=== PATIENT | female | born 1985 | race Caucasian/White ===

== ENCOUNTER 2018-02-15 02:11 | Inpatient (IN) ==
[2018-02-15] MEDS ORDERED: Naloxone 0.4 MG/ML INJ IVP PRN (02:49)
[2018-02-15] MEDS ORDERED: Famotidine 20 MG/2 ML VIAL IVP PRN (02:49)
[2018-02-15] MEDS ORDERED: Metoclopramide 10 MG/2 ML VIAL IVP PRN ×2 (02:49→08:09)
[2018-02-15] MEDS ORDERED: Ringers Solution, Lactated 1,000 ML ONE (02:59)
[2018-02-15] MEDS ORDERED: Ringers Solution, Lactated 1,000 ML IVC SCH (03:00)
--- NOTE | 2018-02-15 03:07 | Anesthesia Evaluation PreOp ---
Date of Encounter: 02/15/18 Time of Encounter: 03:05 - Past History Planned Operation: Repeat C/S Cardiac History: Denies any Significant Hx Pulmonary History: Denies Any Significant HX SALES PROPERTY MANAGER History: Denies Any Significant HX Other Medical History: Denies Any Significant HX Anesthesia History: No Prior Anesthetic Complications (denies personal and family h/o GA complications), Problems (PDPH with last single-shot spinal attempt for C/S; then patient had to be put under GETA; no issues w/ MJ in first .) : Yes Alcohol Use: none Drug use: none Medications and Allergies Cetirizine HCl [Children's Zyrtec] 10 ml PO PRN PRN 02/15/18 [History] Docusate [Colace] 1 tab PO DAILY 02/15/18 [History] Vit No.129/Iron/FA [ One Daily Tablet] 1 tab PO DAILY 02/15/18 [History] 3 Allergy/AdvReac Type Severity Reaction Status Date / Time No Known Allergies Allergy Verified 02/15/18 02:29 - Meds/Allergy Pre-op Review Medications Reviewed: Yes Allergies Reviewed: Yes Beta Blockers on Current Med List: No Anesthesia Exam O2 Sat Height 1.55 m Weight 77.8 kg NPO (# of Hours): since 02/14/2018 @2000 Pain Scale: 3 Pain Scale Used: [place]scar[place]ultana (Faces) - HEENT Pupil (Motor): Pupils equal Mallampati: II Teeth: Normal Oral Opening: Greater than 3 - SALES PROPERTY MANAGER LOC: Oriented SALES PROPERTY MANAGER Motor: Normal RUE, Normal LUE, Normal RLE, Normal LLE, Normal Face SALES PROPERTY MANAGER Sensory: Normal: RUE, LUE, RLE, LLE, Face - Cardiac Rhythm: Regular Murmur: None - Pulmonary Breath Sounds: bilateral Clear Respiratory Effort: Symmetrical Anesthesia Assess/Plan ASA Score: 2 Modified Tamir Scale for Level of Consciousness: Cooperative, oriented, and tranquil Anesthetic Plan: General (plan B), Regional (plan A) Autologous Blood: No Monitoring Plan: Standard Monitors Recovery Plan: PACU
[2018-02-15 03:08] LABS: Basophils % 0.3 %; Eosinophils # 0.1 K/mcL (0.0-0.6); Eosinophils % 0.5 %; Hematocrit 36.2 % (35.3-44.9); Hemoglobin 12.2 g/dL (11.5-15.4); Immature Granulocytes % 0.6 % (0-4); Lymphocytes # 1.6 K/mcL (0.6-4.6); Lymphocytes % 13.2 %; Mean Corpuscular HGB Conc 33.7 g/dL (31.6-35.5); Mean Corpuscular Hemoglobin 31.9 pg (28.0-33.3); Mean Corpuscular Volume 94.8 fL (83.0-100.0); Mean Platelet Volume 11.3 fL (9.4-12.4); Monocytes # 0.8 K/mcL (0.0-1.3); Monocytes % 6.8 %; Neutrophils # 9.7 K/mcL (1.6-8.9); Platelet Count 155 K/mcL (140-400); Red Blood Count 3.82 M/mcL (3.82-4.97); Red Cell Distribution Width 12.1 % (11.5-14.5); Segmented Neutrophils % 78.6 %
[2018-02-15] MEDS ORDERED: Bupivacaine/PF 0.75% in Dex 2 ML AMPUL INFILT ONE (03:09)
[2018-02-15] MEDS ORDERED: *HR* Morphine Sulfate/PF 10 MG/10 ML AMPUL ONE (03:11)
[2018-02-15] MEDS ORDERED: Lidocaine -MPF 1% 5 ML AMPUL ONE (03:11)
[2018-02-15] MEDS ORDERED: *HR* FentaNYL (PF) 100 MCG/2 ML VIAL ONE (03:11)
[2018-02-15 03:26] LABS: Amphetamine Screen,Urine Negative ng/mL (Cutoff=1000); Barbiturate Screen,Urine Negative ng/mL (Cutoff=200); Benzodiazepines Screen,Urine Negative ng/mL (Cutoff=200); Cannabinoid Screen,Urine Negative ng/mL (Cutoff = 50); Cocaine Screen,Urine Negative ng/mL (Cutoff= 300); Opiate Screen,Urine Negative ng/mL (Cutoff=300); Phencyclidine Screen,Urine Negative ng/mL (Cutoff=25)
--- NOTE | 2018-02-15 03:27 | OB/GYN History & Physical ---
Date of Encounter: 02/15/18 Time of Encounter: 03:22 Assessment and Plan (1) 38 weeks gestation of Current visit: Yes Status: Acute SROM Pain management with spinal Will cover for GBS Plan for as she has had 2 prior and desires BPS (2) History of delivery Current visit: Yes Status: Acute Plan for repeat with sterilization, surgical consent signed with Dr. Aguero History of Present Illness HPI: Ms. López is a 32 year old female patient of Dr. Aguero who presents at 38w2d based on 8 week US due to SROM. Patient states she was checked in the office yesterday afterwards experienced small bleeding but today 02/15 at midnight she experienced a leakage of fluids. Reports good movement. Denies bleeding, headache, nausea, vomiting. Beginning to feel contractions. Has had two prior deliveries and requests BPS. No complications with this . A Positive GBS positive Varicella and Rubella immune HIV negative All other serologies negative Past Med Surg Social Fam HX - Past Medical History Medical history: no medical history Psychiatric history: no psych history - Past Surgical History Surgical History: (x2) Additional surgical history: X2 ACL surgeries on left knee - Social History Smoking Status: Never smoker Smokeless Tobacco Status: No Alcohol use: none Drug use: none - Family History Father Hx Family Endocrine Disorder: Yes (DM) Obstetrical History - Pregnancies : 3 Para: 2 Livin Medications and Allergies Cetirizine HCl [Children's Zyrtec] 10 ml PO PRN PRN 02/15/18 [History] Docusate [Colace] 1 tab PO DAILY 02/15/18 [History] Vit No.129/Iron/FA [ One Daily Tablet] 1 tab PO DAILY 02/15/18 [History] 3 Allergy/AdvReac Type Severity Reaction Status Date / Time No Known Allergies Allergy Verified 02/15/18 02:29 Review of System OB All systems PM: reviewed and no additional remarkable complaints except as stated - Genitourinary Genitourinary: vaginal discharge Exam - Constitutional Constitutional: well developed, well nourished, no acute distress, average body habitus - HEENT HEENT: Normocephaly, Mucus Membranes Moist - Lungs Respiratory exam: CTAB - Cardiovascular Cardiovascular exam: RRR, +S1, +S2 - Abdomen Abdomen: Present: bowel sounds normal, gravid - Extremities Extremities exam: normal inspection Deep Tendon Reflex Grade: 2+ Normal - Cervix Dilation: 2 (per RN) Effacement: 80 Station: -2 - Uterus Uterus exam: Present: normal size, normal contour Results Result Diagrams: 02/15/18 02:50 Abnormal lab results WBC 12.4 K/mcL (4.3-11.1) H 02/15/18 02:50 Neutrophils # 9.7 K/mcL (1.6-8.9) H 02/15/18 02:50 All other labs normal. - Attending Attestation I examined this patient and my medical decision-making was reviewed with the Resident Physician. I agree with the documented findings, disposition and treatment plan as described except to the extent set forth below. Jorge Nayak MD,FACOG
[2018-02-15] MEDS ORDERED: Oxytocin 20 units/ LR 1000 mL 20 UNIT/1,000 ML BAG IVC ONE ×2 (04:03→06:49)
[2018-02-15] MEDS ORDERED: *HR* HYDROmorphone 2 MG TABLET PO PRN (04:46)
[2018-02-15] MEDS ORDERED: *HR* OxyCODONE Immed Rel 5 MG TABLET PO PRN (04:46)
[2018-02-15] MEDS ORDERED: Ondansetron 4 MG/2 ML VIAL IVP PRN ×2 (04:46→08:09)
[2018-02-15] MEDS ORDERED: *HR* Promethazine 25 MG/ML VIAL IVP PRN ×2 (04:46→09:57)
[2018-02-15] MEDS ORDERED: Acetaminophen IV 1,000 MG/100 ML INFUS..BTL IVPB ONE (04:46)
--- NOTE | 2018-02-15 05:58 | OB/GYN Procedure Note ---
Section - Date of procedure: 02/15/18 Preop diagnosis: desires repeat , desires sterilization Post-op diagnosis: same Procedure: repeat low transverse, bilateral tubal ligation Surgeon: Jorge Naranjo Blood Loss: 500 Was there an assistant football coach present: Yes Paint Mixer Machine: Teresa William Anesthesiologist: Froylan Watson Anesthesia Type: Spinal section complications: none Disposition: PACU Specimens: Right tube segment, Left tube segment - (s) Infant A Delivery Date: 02/15/18 Delivery Time: 04:43 Presentation: vertex Position: BALTAZAR Gender: Male Viability: Viable Pounds: 6 Ounces: 12 at 1 minute: 8 at 5 minutes: 9 - Narrative Narrative: Patient was taken to the operating room. After satisfactory anesthesia was achieved, patient placed in supine position Altman catheter inserted and prepped and draped in usual manner. After appropriate timeout was obtained, the abdomen was entered through standard Maylard incision. The Michelle retractor was placed. Peritoneum overlying the lower uterine segment was incised in U-shaped fashion. Uterine cavity was entered sharply extended laterally. Fluid was clear. With fundal pressure the head was delivered. Nuchal cord 1 that was loose was relieved. Infant suctioned upon delivery of the head. Remainder the infant was delivered. The umbilical cord for cord double clamped and cut and the was handed to nursery staff for further evaluation. Placenta was removed. Uterus was closed with 0 Monocryl in a single layer. Fallopian tubes were bilaterally resected and sent to pathology for analysis. Pedicles were ligated using 2-0 chromic. After assurance of hemostasis, the retractor was removed. Abdomen was closed standard fashion using 0 PDS on the fascia and 3-0 Monocryl in the skin. Sterile dressing was applied. Patient did well and was taken to recovery in satisfactory condition. Counts were correct.
--- NOTE | 2018-02-15 06:01 | Anesthesia Evaluation Post Op ---
Date of Encounter: 02/15/18 Time of Encounter: 06:00 - Vital Signs Vital Signs: 109/60, HR 72, RR 16, SpO2 98%, T 97.5F - Lungs Lungs: Clear Ascult./Percussion - Airway Airway: Non-obstructed - Cardiovascular Regular Rate - Mental Status Mental Status: Alert & Oriented, Answers Appropriately - Pain Pain Scale: 0 Pain Scale used: Numeric (1 - 10) - Nausea Vomiting Nausea Vomiting: Responds to treatment with IV Meds - Hydration Hydration: NPO, Altman catheter - Discharge PostOp Status: Transfer Patient to floor
[2018-02-15] MEDS ORDERED: Oxytocin 20 units/ LR 1000 mL 20 UNIT/1,000 ML BAG IVC SCH (08:09)
[2018-02-15] MEDS ORDERED: Sennosides 8.6 MG TABLET PO PRN (08:09)
[2018-02-15] MEDS ORDERED: Acetaminophen 325 MG TABLET PO PRN (08:09)
[2018-02-15] MEDS ORDERED: *HR* OxyCODONE/APAP 5/325 TABLET PO PRN (08:09)
[2018-02-15] MEDS: Prenatal Vit/FA 1 EACH TABLET PO SCH (10:15)
[2018-02-15] MEDS: Simethicone 80 MG TAB.CHEW PO PRN (20:23)
[2018-02-15] MEDS: Ibuprofen 600 MG TABLET PO PRN (20:24)
[2018-02-16 06:48] LABS: Basophils % 0.2 %; Eosinophils # 0.1 K/mcL (0.0-0.6); Eosinophils % 0.9 %; Hematocrit 30.9 % (35.3-44.9); Immature Granulocytes % 0.5 % (0-4); Lymphocytes # 1.2 K/mcL (0.6-4.6); Lymphocytes % 8.9 %; Mean Corpuscular HGB Conc 33.3 g/dL (31.6-35.5); Mean Corpuscular Hemoglobin 32.3 pg (28.0-33.3); Mean Corpuscular Volume 96.9 fL (83.0-100.0); Mean Platelet Volume 10.9 fL (9.4-12.4); Monocytes % 7.3 %; Neutrophils # 10.9 K/mcL (1.6-8.9); Platelet Count 133 K/mcL (140-400); Red Blood Count 3.19 M/mcL (3.82-4.97); Segmented Neutrophils % 82.2 %
[2018-02-16 06:58] LABS: Hemoglobin 10.3 g/dL (11.5-15.4)
[2018-02-16] MEDS: Ibuprofen 600 MG TABLET PO PRN ×2 (06:58→12:57)
[2018-02-16] MEDS: Prenatal Vit/FA 1 EACH TABLET PO SCH (07:44)
--- NOTE | 2018-02-16 10:01 | OB/GYN Progress Note ---
Date of Encounter: 02/16/18 Time of Encounter: 09:59 - Assessment and Plan (1) Status post delivery Current Visit: Yes Status: Acute Stable POD1 Pain management H&H stable Anticipate discharge tomorrow morning Subjective - Subjective Interval history: POD1 s/p repeat delivery and BPS. Patient doing well, voiding and drinking well, vaginal bleeding improving. Denies BM yet. Bonding well with baby and . Pain well controlled and states her mood is "good." Baby boy to have circumcision today. Patient reports: appetite normal, voiding normally, pain well controlled, ambulating normally [place]: doing well Objective - Vital Signs Latest vital signs: Vital Signs Temp Pulse Resp BP Pulse Ox 02/16/18 08:00 16 02/16/18 07:58 97.6 F 77 16 110/72 96 02/16/18 00:19 98.3 F 83 16 94/58 96 02/15/18 19:20 97.9 F 85 14 102/69 97 02/15/18 16:06 98.1 F 85 16 105/70 02/15/18 11:00 97.3 F L 78 16 112/70 02/15/18 10:00 97.6 F 91 16 109/74 Intake and Output 02/15/18 02/16/18 02/16/18 23:59 07:59 15:59 Intake Total 1060 / 1060 300 / 300 360 / 360 Output Total 1100 / 1100 1800 / 1800 350 / 350 Balance -40 / -40 -1500 / -1500 10 / 10 Intake: Oral 1060 / 1060 300 / 300 360 / 360 Output: Urine 1800 / 1800 350 / 350 Catheter 1100 / 1100 Other: Meal Dinner Breakfast Percent of Meal Consumed 75% 100% Stool Characteristics Normal for Patient Weight 75.478 kg Patient Weight 02/16/18 23:59 Weight 75.478 kg - Exam Lungs: bilateral: normal Chest: Normal S1, Normal S2 Extremities: Present: normal Abdomen: Present: normal appearance, soft Incision: Present: normal, dry, dressed (small areas of dried, crusted blood, no active bleeding. Not saturated. KISHORE in place. ) Uterus: Present: normal (at umbulicus), firm Comments: ambulating well without distress. States mood is "good" I examined this patient and my medical decision-making was reviewed with the Resident Physician. I agree with the documented findings, disposition and treatment plan as described except to the extent set forth below. JEREMIAH Matt - Labs Labs: Laboratory Results - last 24 hr 02/16/18 06:33 WBC 13.2 H RBC 3.19 L Hgb 10.3 L D Hct 30.9 L MCV 96.9 MCH 32.3 MCHC 33.3 RDW 12.0 Plt Count 133 L MPV 10.9 Immature Gran % 0.5 Seg Neutrophils % 82.2 Lymphocytes % 8.9 Monocytes % 7.3 Eosinophils % 0.9 Basophils % 0.2 Neutrophils # 10.9 H Lymphocytes # 1.2 Monocytes # 1.0 Eosinophils # 0.1 Basophils # 0.0
[2018-02-16] MEDS: Simethicone 80 MG TAB.CHEW PO PRN (14:24)
[2018-02-17] MEDS: Ibuprofen 600 MG TABLET PO PRN ×2 (02:39→08:07)
[2018-02-17] MEDS: Prenatal Vit/FA 1 EACH TABLET PO SCH (08:05)
[2018-02-17 08:12] VITALS: BP 108/73
--- NOTE | 2018-02-17 10:15 | Discharge Summary ---
Date of Encounter: 02/17/18 Time of Encounter: 10:15 - Discharge Diagnosis (1) Status post delivery Priority: Primary Status: Acute Comments: with BPS - Discharge Medications Prescriptions: OxyCODONE/APAP 5/325 [Percocet 5/325 MG] 1 each PO Q4HR PRN 1 Days #5 tablet PRN Reason: Moderate pain 4-6 Ibuprofen [Motrin] 600 mg PO Q6HR PRN 14 Days #56 tablet PRN Reason: Cramping Docusate Sodium [Colace] 100 mg PO BID 30 Days #60 capsule Home Medications: Cetirizine HCl [Children's Zyrtec] 10 ml PO PRN PRN 02/15/18 [History] Vit No.129/Iron/FA [ One Daily Tablet] 1 tab PO DAILY 02/15/18 [History] Docusate Sodium [Colace] 100 mg PO BID 30 Days #60 capsule 02/17/18 [Rx] Ibuprofen [Motrin] 600 mg PO Q6HR PRN 14 Days #56 tablet 02/17/18 [Rx] OxyCODONE/APAP 5/325 [Percocet 5/325 MG] 1 each PO Q4HR PRN 1 Days #5 tablet [Rx] Allergies/Adverse Reactions: 3 Allergy/AdvReac Type Severity Reaction Status Date / Time No Known Allergies Allergy Verified 02/15/18 02:29 Data Procedures and tests throughout hospitalization: Laboratory Tests 02/15/18 02/15/18 02/15/18 02:50 02:50 02:50 WBC 12.4 H RBC 3.82 Hgb 12.2 Hct 36.2 MCV 94.8 MCH 31.9 MCHC 33.7 RDW 12.1 Plt Count 155 MPV 11.3 Immature Gran % 0.6 Seg Neutrophils % 78.6 Lymphocytes % 13.2 Monocytes % 6.8 Eosinophils % 0.5 Basophils % 0.3 Neutrophils # 9.7 H Lymphocytes # 1.6 Monocytes # 0.8 Eosinophils # 0.1 Basophils # 0.0 Urine Opiates Screen Negative Ur Barbiturates Screen Negative Ur Phencyclidine Scrn Negative Ur Amphetamines Screen Negative U Benzodiazepines Scrn Negative Urine Cocaine Screen Negative U Marijuana (THC) Screen Negative Ur Drug Screen Interp See Below Hep Bs Antigen Nonreactive 02/16/18 06:33 WBC 13.2 H RBC 3.19 L Hgb 10.3 L D Hct 30.9 L MCV 96.9 MCH 32.3 MCHC 33.3 RDW 12.0 Plt Count 133 L MPV 10.9 Immature Gran % 0.5 Seg Neutrophils % 82.2 Lymphocytes % 8.9 Monocytes % 7.3 Eosinophils % 0.9 Basophils % 0.2 Neutrophils # 10.9 H Lymphocytes # 1.2 Monocytes # 1.0 Eosinophils # 0.1 Basophils # 0.0 Urine Opiates Screen Ur Barbiturates Screen Ur Phencyclidine Scrn Ur Amphetamines Screen U Benzodiazepines Scrn Urine Cocaine Screen U Marijuana (THC) Screen Ur Drug Screen Interp Hep Bs Antigen Date of admission: 02/15/18 02:11 Primary care physician: PCP NONE Discharging clinician: Teresa William Anticipated date of discharge: 02/17/18 - Patient Status Disposition: Home, Self-Care Functional capacity at discharge: independent ambulation Overall status at discharge: patient is progressing back to baseline - Discharge Instructions Follow Up With: NONE,PCP [Primary Care Provider] - Additional Instructions: - Follow up with Dr. Nayak on 02/27/18 for reevaluation and examination of your incision - Take ibuprofen 600mg every 6 hours for moderate pain and cramping. Take percocet 5mg as needed for breakthrough pain, do not drive while taking this medication. Continue with docusate for stool softening. - Please contact the office should you develop any thoughts of hopelessness or worthlessness, inability to deshpande with baby, increased vaginal bleeding, or concern for incisional infection. - No driving until you are fully healed and not on pain medication. - Diet and Activity Activity: increase activity as tolerated Diet: advance to your usual diet Hospital Course Procedures: Section - Date of procedure: 02/15/18 Preop diagnosis: desires repeat , desires sterilization Post-op diagnosis: same Procedure: repeat low transverse, bilateral tubal ligation Surgeon: Jorge Nayak Quantitated Blood Loss: 500 Was there an life science research assistant present: Yes Pulper: Teresa William Anesthesiologist: Froylan Watson Anesthesia Type: Spinal section complications: none Disposition: PACU Specimens: Right tube segment, Left tube segment - (s) A Delivery Date: 02/15/18 Delivery Time: 04:43 Presentation: vertex Position: BALTAZAR Gender: Male Viability: Viable Pounds: 6 Ounces: 12 at 1 minute: 8 at 5 minutes: 9 - Narrative Narrative: Patient was taken to the operating room. After satisfactory anesthesia was achieved, patient placed in supine position Altman catheter inserted and prepped and draped in usual manner. After appropriate timeout was obtained, the abdomen was entered through standard Maylard incision. The Michelle retractor was placed. Peritoneum overlying the lower uterine segment was incised in U-shaped fashion. Uterine cavity was entered sharply extended laterally. Fluid was clear. With fundal pressure the head was delivered. Nuchal cord 1 that was loose was relieved. suctioned upon delivery of the head. Remainder the infant was delivered. The umbilical cord for cord double clamped and cut and the infant was handed to nursery staff for further evaluation. Placenta was removed. Uterus was closed with 0 Monocryl in a single layer. Fallopian tubes were bilaterally resected and sent to pathology for analysis. Pedicles were ligated using 2-0 chromic. After assurance of hemostasis, the retractor was removed. Abdomen was closed standard fashion using 0 PDS on the fascia and 3-0 Monocryl in the skin. Sterile dressing was applied. Patient did well and was taken to recovery in satisfactory condition. Counts were correct. Reason for admission: rupture of membranes Delivery: section Other procedures: none complications: none Discharge diagnosis: other (repeat section with BPS) baby: male Hospital course: Ms. López is a 32 year old female patient of Dr. Aguero who presented at 38w2d based on 8 week US due to SROM on 02/14/18. She had two prior cesareans and requested sterilization with BPS. She underwent delivery of viable male on 02/15/18 and underwent BPS with Dr. Nayak. No intraoperative or postoperative complications. POD2 she is ambulating, eating, drinking, , and voiding well. Passing flatus and small BM. Mood is "good." Vaginal bleeding improving and pain well controlled with motrin. She states she is ready for discharge home. Plan to discharge home and to follow up on with Dr. Nayak. Will discharge with ibuprofen 600mg and Percocet 5mg along with docusate. Return precautions given including feelings of hopelessness or worthlessness, inability to deshpande with baby, increased vaginal bleeding, or signs of surgical site infection. Patient and agree with and understand the plan for discharge and follow up. All questions answered. Time Attestation: Total time spent providing and/or coordinating discharge services: Time Spent: Less than 30 minutes - VTE Documentation of Mechanical Device: Intermittent pneumatic compression device - Attending Attestation I examined this patient and my medical decision-making was reviewed with the Resident Physician. I agree with the documented findings, disposition and treatment plan as described except to the extent set forth below. JEREMIAH Matt Exam - Constitutional Vitals: Temp Pulse Resp BP Pulse Ox 97.6 F 84 16 108/73 98 02/17/18 08:10 02/17/18 08:10 02/17/18 08:10 02/17/18 08:10 02/17/18 08:10 General appearance IM: A&O X 3, pleasant, no acute distress, answers questions appropriately Exam: ambulating and joking with and baby - Respiratory Respiratory exam: Present: CTAB - Cardiovascular Cardiovascular exam IM: Present: RRR, +S1, +S2 - GI/Abdominal Incision: normal, dry, dressed (with KISHORE) - Uterine Tone: Firm Uterus Position: At Umbilicus, Midline - Extremities Exam Extremities exam IM: Present: full ROM. Absent: pedal edema - Neurological Exam Neurological exam: alert, normal gait, oriented X3 - Psychiatric Additional comments: States her mood is "good"
== END 2018-02-17 11:30 | disposition home or self-care (01) | DRG 785 ==
LOC: 1NENULAB 02:11 → 1NENUOBS 07:55
PROVIDERS: ADMIT Obstetrics & Gynecology; ATTEND Obstetrics & Gynecology